=== PATIENT | male | born 1930 | race Caucasian/White ===

== ENCOUNTER → 2018-11-15 | Outpatient (CLI) | payer OTHER | END | disposition home or self-care (01) | LOC: SHCH 07:50 | PROVIDERS: ATTEND Internal Medicine Cardiovascular Disease | DX: R60.9 Edema, unspecified (principal) | CPT/HCPCS: 93970 ==

== ENCOUNTER 2020-06-23 05:36 | Day surgery (SDC) | payer OTHER ==
[2020-06-19 15:40] LABS: BASOPHILS % (AUTO) 0.9 % (0.0-5.0); EOSINOPHILS % (AUTO) 3.1 % (0.0-8.0); HEMATOCRIT 46.9 % (42-54); LYMPHOCYTES % (AUTO) 21.9 % (21.0-51.0); MEAN CORPUSCULAR HGB CONC 32.6 g/dL (32.0-36.0); MONOCYTES % (AUTO) 11.1 % (3.0-13.0); NEUTROPHILS % (AUTO) 62.3 % (40.0-77.0); PLATELET COUNT (AUTO) 178 K/uL (130-400); RED CELL DISTRIBUTION WIDTH 15.3 % (11.0-15.5); WHITE BLOOD COUNT (AUTO) 7.4 K/uL (4.8-10.8)
[2020-06-19 15:51] LABS: CREATININE 1.1 mg/dL (0.5-1.5)
[2020-06-19 15:54] LABS: INR 1.04 (0.85-1.15); PROTHROMBIN TIME 11.3 SEC (9.6-11.6)
[2020-06-19 15:55] LABS: PARTIAL THROMBOPLASTIN TIME 25.9 SEC (26.3-35.5)
[2020-06-19 16:15] LABS: APPEARANCE,URINE Clear (CLEAR); BILIRUBIN,URINE Negative (NEGATIVE); COLOR,URINE Yellow (YELLOW); GLUCOSE, URINE (UA) >=1000 mg/dL (NEGATIVE); KETONES,URINE Negative (NEGATIVE); LEUKOCYTE ESTERASE ,URINE Negative (NEGATIVE); NITRATE,URINE Negative (NEGATIVE); OCCULT BLOOD,URINE Negative (NEGATIVE); PROTEIN,URINE Negative (NEGATIVE); UROBILINOGEN,URINE 0.2 mg/dL (0.2-1.0)
[2020-06-19 16:28] LABS: BACTERIA,URINE Rare /HPF (None Seen); RBC,URINE None Seen /HPF (0-1); WBC,URINE None Seen /HPF (0-1)
[2020-06-19 16:29] LABS: SQUAMOUS EPITHELIAL CELL,UR None Seen /HPF (0-2)
[2020-06-22 10:16] VITALS: BP 163/81
[2020-06-23] VITALS (11 sets, daily range): BP systolic 111–151; BP diastolic 62–80
[~2020-06-23] VITALS: Ht 177.8 cm; Wt 92.7 kg
[~2020-06-23 05:36] MED LIST: APIX5TAB PO; CARB-37 PO; CARV6.25 PO; DOFE250C PO; EMPA10TA PO; FURO40TA5 PO; GABA400C PO; INSU100V12 SQ; LEVO55OS OD; PRIM50TA23 PO; ROPI1TAB13 PO; ROSU20TA31 PO; XALA2.5OS OD
[2020-06-23] MEDS ORDERED: IODIXANOL 320 MG/ML 100 ML VIAL ONE ×2 (07:19→08:22)
[2020-06-23] MEDS ORDERED: LIDOCAINE HCL 2% 20ML ONE (07:19)
[2020-06-23] MEDS ORDERED: NITROGLYCERIN 2 MG/VIAL VIAL IV ONE (07:19)
[2020-06-23] MEDS ORDERED: SODIUM BICARB 50MEQ 50ML VIAL 0 ML ONE (07:19)
[2020-06-23] MEDS ORDERED: HEPARIN SODIUM 1000UNIT/ML 10ML VIAL ONE (07:19)
[2020-06-23] MEDS ORDERED: FENTANYL CITRATE PF 50 MCG/1 ML 2ML VIAL ONE (07:53)
[2020-06-23] MEDS ORDERED: MIDAZOLAM HCL 1 MG/ML 2ML VIAL ONE (07:53)
[2020-06-23] MEDS ORDERED: SODIUM CHLORIDE 0.9% 1000ML 1,000 ML IV SCH (08:00)
[2020-06-23] MEDS ORDERED: PRIM50TA23 PO (12:07)
[2020-06-23] MEDS ORDERED: ROSU20TA31 PO (12:07)
[2020-06-23] MEDS ORDERED: DOFE250C PO (12:07)
[2020-06-23] MEDS ORDERED: EMPA10TA PO (12:07)
[2020-06-23] MEDS ORDERED: GABA400C PO (12:07)
[2020-06-23] MEDS ORDERED: XALA2.5OS OD (12:07)
[2020-06-23] MEDS ORDERED: INSU100V12 SQ (12:07)
[2020-06-23] MEDS ORDERED: CARV6.25 PO (12:07)
[2020-06-23] MEDS ORDERED: CARB-37 PO (12:07)
[2020-06-23] MEDS ORDERED: FURO40TA5 PO (12:07)
[2020-06-23] MEDS ORDERED: LEVO55OS OD (12:07)
[2020-06-23] MEDS ORDERED: ROPI1TAB13 PO (12:07)
[2020-06-23] MEDS ORDERED: APIX5TAB PO (12:07)
== END 2020-06-23 13:15 | disposition home or self-care (01) ==
LOC: DAH 05:36
PROVIDERS: ATTEND Internal Medicine Cardiovascular Disease
DX: I70.212 Atherosclerosis of native arteries of extremities with intermittent claudication, left leg (principal); E11.51 Type 2 diabetes mellitus with diabetic peripheral angiopathy without gangrene; I70.92 Chronic total occlusion of artery of the extremities; I25.10 Atherosclerotic heart disease of native coronary artery without angina pectoris; I10 Essential (primary) hypertension; E78.5 Hyperlipidemia, unspecified; G20 Parkinson's disease; I48.0 Paroxysmal atrial fibrillation; I25.2 Old myocardial infarction; Z79.01 Long term (current) use of anticoagulants; Z95.1 Presence of aortocoronary bypass graft; Z79.899 Other long term (current) drug therapy; Z79.4 Long term (current) use of insulin; Z79.82 Long term (current) use of aspirin; Z83.3 Family history of diabetes mellitus
CPT/HCPCS: 36246; 36415; 71045; 75716; 80048; 81001; 82948 ×2; 85025; 85610; 85730; 93005; A4215; A4216; A4221; A4222; A4223 ×2; A4606; A4663; C1760; C1769; C1894 ×2; J1644; J2250; J3010; J3490 ×2; J7030; Q9967 ×2; 99156; 99157

== ENCOUNTER → 2020-07-21 | Outpatient (CLI) | payer OTHER | END | disposition home or self-care (01) | LOC: SHCH 08:32 | PROVIDERS: ATTEND Internal Medicine Cardiovascular Disease | DX: I11.0 Hypertensive heart disease with heart failure (principal); I50.22 Chronic systolic (congestive) heart failure; I08.8 Other rheumatic multiple valve diseases; E78.5 Hyperlipidemia, unspecified; E11.9 Type 2 diabetes mellitus without complications | CPT/HCPCS: 93306; 93356 ==

== ENCOUNTER 2020-07-25 15:36 | Inpatient (IN) | payer OTHER ==
[~2020-07-25] VITALS: Ht 177.8 cm; Wt 91.2 kg
[2020-07-25 16:14] LABS: BASOPHILS % (AUTO) 0.7 % (0.0-5.0); EOSINOPHILS % (AUTO) 2.4 % (0.0-8.0); HEMATOCRIT 51.9 % (42-54); LYMPHOCYTES % (AUTO) 17.9 % (21.0-51.0); MEAN CORPUSCULAR HEMOGLOBIN 29.2 pg (27.0-33.0); MEAN CORPUSCULAR HGB CONC 32.2 g/dL (32.0-36.0); MEAN CORPUSCULAR VOLUME 90.7 fL (79-99); MONOCYTES % (AUTO) 13.7 % (3.0-13.0); NEUTROPHILS % (AUTO) 64.9 % (40.0-77.0); PLATELET COUNT (AUTO) 147 K/uL (130-400); RED BLOOD CELL COUNT(AUTO) 5.72 MIL/uL (4.50-6.20); WHITE BLOOD COUNT (AUTO) 6.7 K/uL (4.8-10.8)
[2020-07-25] MEDS ORDERED: ZOSYN 3.375GM+NS 50ML 50 ML IV ONE (16:28)
[2020-07-25] MEDS ORDERED: VANCOMYCIN 1GM+NS 250ML 250 ML IV ONE (16:28)
[2020-07-25 16:29] LABS: CREATININE 1.1 mg/dL (0.5-1.5); POTASSIUM 4.5 mmol/L (3.5-5.1)
[2020-07-25] MEDS ORDERED: SODIUM CHLORIDE 0.9% 100 ML IV ONE (16:29)
[2020-07-25 16:35] LABS: ALBUMIN 3.8 g/dL (3.5-5.0); BILIRUBIN,TOTAL 0.6 mg/dL (0.2-1.0); TOTAL PROTEIN, SERUM 7.7 g/dL (6.0-8.3)
[2020-07-25 17:03] LABS: INR 1.03 (0.85-1.15); PROTHROMBIN TIME 11.2 SEC (9.6-11.6)
[2020-07-25 17:05] LABS: PARTIAL THROMBOPLASTIN TIME 27.4 SEC (26.3-35.5)
[2020-07-25 17:29] LABS: APPEARANCE,URINE Clear (CLEAR); BILIRUBIN,URINE Negative (NEGATIVE); COLOR,URINE Yellow (YELLOW); GLUCOSE, URINE (UA) >=1000 mg/dL (NEGATIVE); KETONES,URINE Negative (NEGATIVE); LEUKOCYTE ESTERASE ,URINE Negative (NEGATIVE); NITRATE,URINE Negative (NEGATIVE); OCCULT BLOOD,URINE Negative (NEGATIVE); PROTEIN,URINE Negative (NEGATIVE); UROBILINOGEN,URINE 0.2 mg/dL (0.2-1.0)
[2020-07-25 18:07] LABS: BACTERIA,URINE None Seen /HPF (None Seen); RBC,URINE None Seen /HPF (0-1); SQUAMOUS EPITHELIAL CELL,UR Rare /HPF (0-2)
[2020-07-25 18:08] LABS: WBC,URINE 0-1 /HPF (0-1)
[2020-07-25] MEDS ORDERED: GLUCAGON 1MG KIT 1 MG ML IM PRN (18:30)
[2020-07-25] MEDS ORDERED: DEXTROSE 50%-WATER 50 ML DISP.SYRIN IV PRN (18:30)
[2020-07-25 18:59] LABS: HEMOGLOBIN A1C 9.2 % (4.0-6.0)
[2020-07-25] MEDS ORDERED: ACETAMINOPHEN 325 MG TAB PO PRN ×2 (19:30)
[2020-07-25] MEDS ORDERED: VANCOMYCIN PROTOCOL PER PHARMACY IV PRN (19:30)
[2020-07-25] MEDS ORDERED: ONDANSETRON HCL 4 MG/2 ML VIAL IV PRN (19:30)
[2020-07-25] MEDS ORDERED: NITROGLYCERIN 0.4 MG SL TAB SL PRN (19:30)
[2020-07-25] MEDS ORDERED: ACETAMINOPHEN-CODEINE 300/30MG TAB PO PRN ×2 (19:30)
[2020-07-25] MEDS ORDERED: SODIUM CHLORIDE 0.9% 1000ML 1,000 ML IV SCH (19:30)
[2020-07-25] MEDS: SODIUM CHLORIDE 0.9% 1000ML 1,000 ML IV SCH (19:30)
[2020-07-25] MEDS ORDERED: FAMOTIDINE 20MG TAB 20 MG TAB ONE (20:31)
[2020-07-25] MEDS ORDERED: INSULIN HUMULIN R 100 UNIT/ML 3ML SQ SCH (21:00)
[2020-07-25] MEDS: FAMOTIDINE 20MG TAB 20 MG TAB PO SCH (21:00)
[2020-07-25] MEDS ORDERED: DILTIAZEM HCL 5 MG/ML 10 ML VIAL IV ONE (22:35)
[2020-07-25] MEDS ORDERED: VANCOMYCIN 1GM+NS 250ML 250 ML IV SCH (23:00)
[2020-07-26] MEDS ORDERED: ZOSYN 3.375GM+NS 50ML 50 ML IV SCH
[2020-07-26] MEDS ORDERED: DILTIAZEM HCL 125 MG/25 ML VIAL IV ONE (01:19)
[2020-07-26] MEDS ORDERED: SODIUM CHLORIDE 0.9% 100 ML IV ONE ×3 (01:20→07:47)
[2020-07-26] MEDS ORDERED: DILTIAZEM HCL 125 MG/25 ML 125 MG in SODIUM CHLORIDE 0.9% 100 ML IV SCH (01:30)
[2020-07-26] MEDS ORDERED: ZOSYN 3.375GM+NS 50ML 50 ML IV ONE ×2 (03:45→07:46)
[2020-07-26 04:16] LABS: BASOPHILS % (AUTO) 0.9 % (0.0-5.0); EOSINOPHILS % (AUTO) 2.5 % (0.0-8.0); HEMATOCRIT 49.3 % (42-54); LYMPHOCYTES % (AUTO) 18.3 % (21.0-51.0); MEAN CORPUSCULAR HEMOGLOBIN 29.2 pg (27.0-33.0); MEAN CORPUSCULAR HGB CONC 31.8 g/dL (32.0-36.0); MEAN CORPUSCULAR VOLUME 91.6 fL (79-99); MONOCYTES % (AUTO) 13.9 % (3.0-13.0); NEUTROPHILS % (AUTO) 64.1 % (40.0-77.0); PLATELET COUNT (AUTO) 142 K/uL (130-400); RED BLOOD CELL COUNT(AUTO) 5.38 MIL/uL (4.50-6.20); RED CELL DISTRIBUTION WIDTH 15.2 % (11.0-15.5); WHITE BLOOD COUNT (AUTO) 6.8 K/uL (4.8-10.8)
[2020-07-26 04:30] LABS: ALBUMIN 3.3 g/dL (3.5-5.0); BILIRUBIN,TOTAL 0.7 mg/dL (0.2-1.0); CREATININE 0.9 mg/dL (0.5-1.5); POTASSIUM 3.9 mmol/L (3.5-5.1); TOTAL PROTEIN, SERUM 6.5 g/dL (6.0-8.3)
[2020-07-26] MEDS ORDERED: FAMOTIDINE 20MG TAB 20 MG TAB ONE (07:46)
[2020-07-26] MEDS ORDERED: ENOXAPARIN SODIUM 30 MG/0.3 ML SQ ONE (07:46)
[2020-07-26] MEDS ORDERED: SODIUM CHLORIDE 0.9% 1000ML 1,000 ML IV ONE (07:46)
[2020-07-26] MEDS: FAMOTIDINE 20MG TAB 20 MG TAB PO SCH ×2 (09:00→21:00)
[2020-07-26] MEDS ORDERED: ENOXAPARIN SODIUM 30 MG/0.3 ML SQ SCH (09:00)
[2020-07-26] MEDS: SODIUM CHLORIDE 0.9% 1000ML 1,000 ML IV SCH ×2 (09:13→23:31)
[2020-07-26] MEDS ORDERED: APIXABAN 2.5 MG TABLET PO ONE (20:48)
[2020-07-26] MEDS ORDERED: FUROSEMIDE 40 MG TABLET ONE (20:49)
[2020-07-26] MEDS ORDERED: GABAPENTIN 300 MG CAPSULE ONE (20:50)
[2020-07-26] MEDS ORDERED: GABAPENTIN 100 MG CAPSULE ONE (20:50)
[2020-07-26] MEDS ORDERED: CARVEDILOL 6.25 MG TABLET PO ONE (20:50)
[2020-07-26] MEDS: LEVODOPA PO SCH (21:00)
[2020-07-26] MEDS: DOFETILIDE 250 MCG PO SCH (21:00)
[2020-07-26] MEDS ORDERED: ENOXAPARIN SODIUM 100 MG/1 ML SQ SCH (21:00)
[2020-07-26] MEDS: [UNRECOGNIZED DRUG - OTHER] PO SCH (21:00)
[2020-07-26] MEDS: ATORVASTATIN CALCIUM 40 MG TABLET PO SCH (21:00)
[2020-07-26] MEDS: ROPINIROLE HCL 1 MG TABLET PO SCH (21:00)
[2020-07-26] MEDS: CARBIDOPA PO SCH (21:00)
[2020-07-26] MEDS: GABAPENTIN 100 MG CAPSULE PO SCH (21:00)
[2020-07-26] MEDS: INSULIN HUMULIN R 100 UNIT/ML 3ML SQ SCH (21:00)
[2020-07-26] MEDS: PRIMIDONE 50 MG TAB PO SCH (21:00)
[2020-07-26] MEDS: INSULIN GLARGINE 100 UNITS/ML 10 ML VIAL SQ SCH (21:00)
[2020-07-26] MEDS ORDERED: CARVEDILOL 6.25 MG TABLET PO SCH (21:00)
[2020-07-27] MEDS: INSULIN HUMULIN R 100 UNIT/ML 3ML SQ SCH ×7 (07:30→21:16)
[2020-07-27 07:42] LABS: BASOPHILS % (AUTO) 0.5 % (0.0-5.0); EOSINOPHILS % (AUTO) 1.4 % (0.0-8.0); HEMATOCRIT 48.5 % (42-54); LYMPHOCYTES % (AUTO) 17.8 % (21.0-51.0); MEAN CORPUSCULAR HEMOGLOBIN 28.9 pg (27.0-33.0); MEAN CORPUSCULAR HGB CONC 31.3 g/dL (32.0-36.0); MEAN CORPUSCULAR VOLUME 92.2 fL (79-99); MONOCYTES % (AUTO) 13.6 % (3.0-13.0); NEUTROPHILS % (AUTO) 66.2 % (40.0-77.0); PLATELET COUNT (AUTO) 152 K/uL (130-400); RED BLOOD CELL COUNT(AUTO) 5.26 MIL/uL (4.50-6.20); WHITE BLOOD COUNT (AUTO) 7.8 K/uL (4.8-10.8)
[2020-07-27 08:05] LABS: ALBUMIN 3.1 g/dL (3.5-5.0); ASPARTATE AMINOTRANSFERASE 14 U/L (10-37); BILIRUBIN,TOTAL 0.7 mg/dL (0.2-1.0); CARBON DIOXIDE 27 mmol/L (21-32); CHLORIDE 107 mmol/L (101-111); CREATININE 0.8 mg/dL (0.5-1.5); GLOMERULAR FILTR. RATE CALC 97 mL/min (>60); GLUCOSE,RANDOM 117 mg/dL (70-105); POTASSIUM 3.4 mmol/L (3.5-5.1); SODIUM SERUM 143 mmol/L (136-145); TOTAL PROTEIN, SERUM 6.6 g/dL (6.0-8.3); UREA NITROGEN, BLOOD 17 mg/dL (7-18)
[2020-07-27 08:06] LABS: ALANINE AMINOTRANSFERASE < 6 U/L (12-78)
[2020-07-27] MEDS ORDERED: LATANOPROST 2.5 ML DROPS OD SCH (09:00)
[2020-07-27] MEDS: FUROSEMIDE 40 MG TABLET PO SCH (09:00)
[2020-07-27] MEDS: ROPINIROLE HCL 1 MG TABLET PO SCH ×2 (09:00→21:06)
[2020-07-27] MEDS: PRIMIDONE 50 MG TAB PO SCH ×2 (09:00→21:07)
[2020-07-27] MEDS: [UNRECOGNIZED DRUG - OTHER] PO SCH ×3 (09:00→21:00)
[2020-07-27] MEDS: LEVODOPA PO SCH ×3 (09:00→21:00)
[2020-07-27] MEDS: DOFETILIDE 250 MCG PO SCH ×2 (09:00→21:00)
[2020-07-27] MEDS: CARBIDOPA PO SCH ×3 (09:00→21:00)
[2020-07-27] MEDS: LEVOBUNOLOL HCL OD SCH (09:00)
[2020-07-27] MEDS: FAMOTIDINE 20MG TAB 20 MG TAB PO SCH ×2 (09:00→21:06)
[2020-07-27 09:12] LABS: ERYTHROCYTE SEDIMENTATION RATE 15 MM/HR (0-20)
[2020-07-27] MEDS: CARVEDILOL 12.5 MG TABLET PO SCH ×2 (09:16→21:07)
[2020-07-27] MEDS: DOXYCYCLINE 100MG+NS 250ML 250 ML IV SCH ×2 (11:56→23:45)
[2020-07-27 12:28] VITALS: BP 121/66
[2020-07-27] MEDS ORDERED: CLON1PAT4 TD (16:40)
[2020-07-27 17:34] VITALS: BP 147/74
[2020-07-27 20:00] VITALS: BP 152/79
[2020-07-27] MEDS ORDERED: APIXABAN 5 MG TABLET PO SCH (21:00)
[2020-07-27] MEDS: CEFTRIAXONE SODIUM 1 GM IVP SCH (21:08)
[2020-07-27] MEDS: APIXABAN 5 MG TABLET PO SCH (21:08)
[2020-07-27] MEDS: CILOSTAZOL 100 MG TAB PO SCH (21:08)
[2020-07-27] MEDS: ATORVASTATIN CALCIUM 40 MG TABLET PO SCH (21:08)
[2020-07-27] MEDS: GABAPENTIN 100 MG CAPSULE PO SCH (21:09)
[2020-07-27] MEDS: INSULIN GLARGINE 100 UNITS/ML 10 ML VIAL SQ SCH (21:17)
[2020-07-28] VITALS (7 sets, daily range): BP systolic 121–149; BP diastolic 62–76
[2020-07-28 04:22] LABS: BASOPHILS % (AUTO) 0.7 % (0.0-5.0); EOSINOPHILS % (AUTO) 1.9 % (0.0-8.0); HEMATOCRIT 45.4 % (42-54); MEAN CORPUSCULAR HEMOGLOBIN 29.8 pg (27.0-33.0); MEAN CORPUSCULAR HGB CONC 32.6 g/dL (32.0-36.0); MEAN CORPUSCULAR VOLUME 91.5 fL (79-99); MONOCYTES % (AUTO) 12.1 % (3.0-13.0); NEUTROPHILS % (AUTO) 63.7 % (40.0-77.0); PLATELET COUNT (AUTO) 146 K/uL (130-400); RED BLOOD CELL COUNT(AUTO) 4.96 MIL/uL (4.50-6.20); RED CELL DISTRIBUTION WIDTH 15.1 % (11.0-15.5); WHITE BLOOD COUNT (AUTO) 8.5 K/uL (4.8-10.8)
[2020-07-28 04:48] LABS: ALBUMIN 2.8 g/dL (3.5-5.0); BILIRUBIN,TOTAL 0.6 mg/dL (0.2-1.0); POTASSIUM 3.9 mmol/L (3.5-5.1); TOTAL PROTEIN, SERUM 6.2 g/dL (6.0-8.3)
[2020-07-28] MEDS: INSULIN HUMULIN R 100 UNIT/ML 3ML SQ SCH ×7 (05:38→21:53)
[2020-07-28] MEDS: CARVEDILOL 12.5 MG TABLET PO SCH ×2 (09:12→21:18)
[2020-07-28] MEDS: APIXABAN 5 MG TABLET PO SCH ×2 (09:13→21:17)
[2020-07-28] MEDS: FUROSEMIDE 40 MG TABLET PO SCH (09:13)
[2020-07-28] MEDS: ROPINIROLE HCL 1 MG TABLET PO SCH ×2 (09:13→21:18)
[2020-07-28] MEDS: FAMOTIDINE 20MG TAB 20 MG TAB PO SCH ×2 (09:13→21:17)
[2020-07-28] MEDS: CEFTRIAXONE SODIUM 1 GM IVP SCH ×2 (09:14→21:16)
[2020-07-28] MEDS: PRIMIDONE 50 MG TAB PO SCH ×2 (09:14→21:17)
[2020-07-28] MEDS: CILOSTAZOL 100 MG TAB PO SCH ×2 (09:14→21:18)
[2020-07-28] MEDS: CARBIDOPA PO SCH ×3 (09:35→21:26)
[2020-07-28] MEDS: LEVODOPA PO SCH ×3 (09:35→21:26)
[2020-07-28] MEDS: DOFETILIDE 250 MCG PO SCH ×2 (09:35→21:26)
[2020-07-28] MEDS: [UNRECOGNIZED DRUG - OTHER] PO SCH ×3 (09:35→21:26)
[2020-07-28] MEDS: LEVOBUNOLOL HCL OD SCH (09:35)
[2020-07-28] MEDS: **HM**JARDIANCE 10MG PO SCH (09:36)
[2020-07-28] MEDS: DOXYCYCLINE 100MG+NS 250ML 250 ML IV SCH ×2 (12:08→23:54)
[2020-07-28] MEDS ORDERED: LATANOPROST 2.5 ML DROPS OD SCH (21:00)
[2020-07-28] MEDS: GABAPENTIN 100 MG CAPSULE PO SCH (21:16)
[2020-07-28] MEDS: ATORVASTATIN CALCIUM 40 MG TABLET PO SCH (21:17)
[2020-07-28] MEDS: INSULIN GLARGINE 100 UNITS/ML 10 ML VIAL SQ SCH (21:54)
[2020-07-28] MEDS ORDERED: SODIUM CHLORIDE 0.9% 250 ML IV ONE (23:52)
[2020-07-29 04:00] VITALS: BP 109/69
[2020-07-29 04:34] LABS: BASOPHILS % (AUTO) 0.6 % (0.0-5.0); EOSINOPHILS % (AUTO) 2.3 % (0.0-8.0); HEMATOCRIT 44.4 % (42-54); LYMPHOCYTES % (AUTO) 19.9 % (21.0-51.0); MEAN CORPUSCULAR HEMOGLOBIN 29.1 pg (27.0-33.0); MEAN CORPUSCULAR HGB CONC 32.2 g/dL (32.0-36.0); MEAN CORPUSCULAR VOLUME 90.2 fL (79-99); MONOCYTES % (AUTO) 11.2 % (3.0-13.0); NEUTROPHILS % (AUTO) 65.4 % (40.0-77.0); PLATELET COUNT (AUTO) 157 K/uL (130-400); RED BLOOD CELL COUNT(AUTO) 4.92 MIL/uL (4.50-6.20); RED CELL DISTRIBUTION WIDTH 14.8 % (11.0-15.5); WHITE BLOOD COUNT (AUTO) 7.9 K/uL (4.8-10.8)
[2020-07-29 04:46] LABS: ALBUMIN 2.6 g/dL (3.5-5.0); BILIRUBIN,TOTAL 0.5 mg/dL (0.2-1.0); CREATININE 0.9 mg/dL (0.5-1.5); POTASSIUM 3.9 mmol/L (3.5-5.1); TOTAL PROTEIN, SERUM 6.2 g/dL (6.0-8.3)
[2020-07-29] MEDS: INSULIN HUMULIN R 100 UNIT/ML 3ML SQ SCH ×4 (06:00→12:36)
[2020-07-29 08:00] VITALS: BP 140/72
[2020-07-29] MEDS: CEFTRIAXONE SODIUM 1 GM IVP SCH (09:04)
[2020-07-29] MEDS: CILOSTAZOL 100 MG TAB PO SCH (09:04)
[2020-07-29] MEDS: FAMOTIDINE 20MG TAB 20 MG TAB PO SCH (09:05)
[2020-07-29] MEDS: APIXABAN 5 MG TABLET PO SCH (09:05)
[2020-07-29] MEDS: PRIMIDONE 50 MG TAB PO SCH (09:05)
[2020-07-29] MEDS: ROPINIROLE HCL 1 MG TABLET PO SCH (09:05)
[2020-07-29] MEDS: FUROSEMIDE 40 MG TABLET PO SCH (09:05)
[2020-07-29] MEDS: CARVEDILOL 12.5 MG TABLET PO SCH (09:06)
[2020-07-29] MEDS: LEVOBUNOLOL HCL OD SCH (09:07)
[2020-07-29] MEDS: CARBIDOPA PO SCH (09:17)
[2020-07-29] MEDS: DOFETILIDE 250 MCG PO SCH (09:17)
[2020-07-29] MEDS: [UNRECOGNIZED DRUG - OTHER] PO SCH (09:17)
[2020-07-29] MEDS: LEVODOPA PO SCH (09:17)
[2020-07-29] MEDS: **HM**JARDIANCE 10MG PO SCH (09:17)
[2020-07-29] MEDS ORDERED: CEPH500B PO (10:54)
[2020-07-29] MEDS ORDERED: CARV12.580 PO (10:54)
[2020-07-29] MEDS ORDERED: DOXY100C2 PO (10:54)
[2020-07-29] MEDS ORDERED: CILO100T PO (10:54)
[2020-07-29 12:00] VITALS: BP 117/74
[2020-07-29] MEDS: DOXYCYCLINE 100MG+NS 250ML 250 ML IV SCH (12:36)
[2020-07-29] MEDS ORDERED: SODIUM CHLORIDE 0.9% 250 ML IV ONE (12:40)
== END 2020-07-29 16:05 | disposition home or self-care (01) | DRG 602 ==
LOC: EDH 15:36 → EDHIP 18:20 → 2CH 07-26 09:15 → EDHIP 07-26 09:15 → 4CH 07-27 08:50
PROVIDERS: ADMIT Internal Medicine; ATTEND Internal Medicine
DX: L03.115 Cellulitis of right lower limb (principal); I50.23 Acute on chronic systolic (congestive) heart failure; I48.0 Paroxysmal atrial fibrillation; E11.40 Type 2 diabetes mellitus with diabetic neuropathy, unspecified; E11.51 Type 2 diabetes mellitus with diabetic peripheral angiopathy without gangrene; I25.5 Ischemic cardiomyopathy; I87.2 Venous insufficiency (chronic) (peripheral); Z79.01 Long term (current) use of anticoagulants; Z20.822 Contact with and (suspected) exposure to COVID-19; E66.9 Obesity, unspecified; E78.5 Hyperlipidemia, unspecified; G20 Parkinson's disease; I11.0 Hypertensive heart disease with heart failure; M47.815 Spondylosis without myelopathy or radiculopathy, thoracolumbar region; R53.81 Other malaise; I25.10 Atherosclerotic heart disease of native coronary artery without angina pectoris; I25.2 Old myocardial infarction; Z79.4 Long term (current) use of insulin; Z83.3 Family history of diabetes mellitus; Z95.0 Presence of cardiac pacemaker; Z95.1 Presence of aortocoronary bypass graft; Z79.899 Other long term (current) drug therapy; Z68.28 Body mass index [BMI] 28.0-28.9, adult
CPT/HCPCS: 36415; 71045; 80053; 80202; 81001; 82550; 82948; 83036; 83605; 83735; 83880; 84145; 84484; 85025; 85610; 85651; 85730; 86140; 87040; 87426; 87635; 87641; 93005; 93971; 97039; C9803; G0378; J0696; J1650; J1815; J2543; J3370; J3490; J7030; J7050

== ENCOUNTER 2020-12-23 16:06 | Inpatient (IN) | payer OTHER ==
[~2020-12-23] VITALS: Ht 208.3 cm; Wt 94.2 kg
[~2020-12-23 16:06] MED LIST changes: +CARV12.580 PO; -CARV6.25 PO; +CEPH500B PO; +CILO100T PO; +CLON1PAT4 TD; +DOXY100C5 PO
[2020-12-23 16:55] LABS: BASOPHILS % (AUTO) 0.7 % (0.0-5.0); EOSINOPHILS % (AUTO) 2.3 % (0.0-8.0); HEMATOCRIT 49.2 % (42-54); LYMPHOCYTES % (AUTO) 18.4 % (21.0-51.0); MEAN CORPUSCULAR HEMOGLOBIN 28.6 pg (27.0-33.0); MEAN CORPUSCULAR HGB CONC 31.9 g/dL (32.0-36.0); MEAN CORPUSCULAR VOLUME 89.8 fL (79-99); MONOCYTES % (AUTO) 10.1 % (3.0-13.0); NEUTROPHILS % (AUTO) 67.8 % (40.0-77.0); PLATELET COUNT (AUTO) 163 K/uL (130-400); RED BLOOD CELL COUNT(AUTO) 5.48 MIL/uL (4.50-6.20); RED CELL DISTRIBUTION WIDTH 16.2 % (11.0-15.5); WHITE BLOOD COUNT (AUTO) 8.4 K/uL (4.8-10.8)
[2020-12-23 17:07] LABS: CREATININE 1.4 mg/dL (0.5-1.5); POTASSIUM 4.3 mmol/L (3.5-5.1)
[2020-12-23 17:10] LABS: ALBUMIN 3.7 g/dL (3.5-5.0); BILIRUBIN,TOTAL 0.6 mg/dL (0.2-1.0); TOTAL PROTEIN, SERUM 7.2 g/dL (6.0-8.3)
[2020-12-23 17:51] LABS: APPEARANCE,URINE Clear (CLEAR); BILIRUBIN,URINE Negative (NEGATIVE); COLOR,URINE Yellow (YELLOW); GLUCOSE, URINE (UA) >=1000 mg/dL (NEGATIVE); KETONES,URINE Trace mg/dL (NEGATIVE); LEUKOCYTE ESTERASE ,URINE Negative (NEGATIVE); NITRATE,URINE Negative (NEGATIVE); OCCULT BLOOD,URINE Negative (NEGATIVE); PROTEIN,URINE Trace mg/dL (NEGATIVE); UROBILINOGEN,URINE 0.2 mg/dL (0.2-1.0)
[2020-12-23 18:01] LABS: BACTERIA,URINE Rare /HPF (None Seen); MUCUS,URINE Few LPF (None Seen); RBC,URINE 0-1 /HPF (0-1); SQUAMOUS EPITHELIAL CELL,UR Few /HPF (0-2); WBC,URINE 0-1 /HPF (0-1)
[2020-12-23] MEDS ORDERED: ZOSYN 3.375GM +NS 50ML IV SCH (18:30)
[2020-12-23] MEDS ORDERED: EMPA10TA PO (20:19)
[2020-12-23] MEDS ORDERED: LEVO55OS OU (20:19)
[2020-12-23] MEDS ORDERED: CARB-37 PO (20:19)
[2020-12-23] MEDS ORDERED: CARV6.25 PO (20:19)
[2020-12-23] MEDS ORDERED: APIX5TAB PO (20:19)
[2020-12-23] MEDS ORDERED: FOSI10TA70 PO (20:19)
[2020-12-23] MEDS ORDERED: XALA2.5OS OU (20:19)
[2020-12-23] MEDS ORDERED: DOFE250C PO (20:19)
[2020-12-23] MEDS ORDERED: GABA400C PO (20:19)
[2020-12-23] MEDS ORDERED: FURO40TA5 PO (20:19)
[2020-12-23] MEDS ORDERED: AEC81 PO (20:19)
[2020-12-23] MEDS ORDERED: ROSU20TA23 PO (20:19)
[2020-12-23] MEDS ORDERED: DETEMIR SQ (20:19)
[2020-12-23] MEDS ORDERED: PRIMIDONE PO (20:19)
[2020-12-23] MEDS ORDERED: ROPI1TAB13 PO (20:19)
[2020-12-23] MEDS ORDERED: CLON1PAT4 TD (20:19)
[2020-12-23] MEDS ORDERED: ONDANSETRON 4MG INJ IV PRN (21:30)
[2020-12-23] MEDS ORDERED: ACETAMINOPHEN WITH CODEINE 1 TAB TAB PO PRN (21:30)
[2020-12-24 00:40] VITALS: BP 138/98
[2020-12-24 03:10] VITALS: BP 138/97
[2020-12-24 04:42] LABS: BASOPHILS % (AUTO) 0.8 % (0.0-5.0); EOSINOPHILS % (AUTO) 1.8 % (0.0-8.0); HEMATOCRIT 52.7 % (42-54); LYMPHOCYTES % (AUTO) 20.3 % (21.0-51.0); MEAN CORPUSCULAR HEMOGLOBIN 28.3 pg (27.0-33.0); MEAN CORPUSCULAR HGB CONC 30.9 g/dL (32.0-36.0); MEAN CORPUSCULAR VOLUME 91.5 fL (79-99); MONOCYTES % (AUTO) 11.5 % (3.0-13.0); NEUTROPHILS % (AUTO) 65.1 % (40.0-77.0); PLATELET COUNT (AUTO) 171 K/uL (130-400); RED BLOOD CELL COUNT(AUTO) 5.76 MIL/uL (4.50-6.20); RED CELL DISTRIBUTION WIDTH 17.5 % (11.0-15.5); WHITE BLOOD COUNT (AUTO) 8.9 K/uL (4.8-10.8)
[2020-12-24] MEDS: ZOSYN 3.375GM+NS 50ML 50 ML IV SCH ×2 (04:56→13:28)
[2020-12-24 05:03] LABS: CREATININE 1.3 mg/dL (0.5-1.5); MAGNESIUM 2.1 mg/dL (1.80-2.40); PHOSPHORUS 3.4 mg/dL (2.5-4.9); POTASSIUM 4.9 mmol/L (3.5-5.1)
[2020-12-24 05:14] LABS: PLATELET MORPHOLOGY LARGE PLTS PRESENT
[2020-12-24 05:38] LABS: HEMOGLOBIN A1C 9.4 % (4.0-6.0)
[2020-12-24] MEDS: INSULIN HUMULIN R 100 UNIT/ML 3ML SQ SCH ×4 (06:40→21:00)
[2020-12-24] MEDS: FAMOTIDINE 20MG TAB PO SCH (09:31)
[2020-12-24] MEDS: APIXABAN 5 MG TABLET PO SCH ×2 (09:32→22:09)
[2020-12-24 10:05] VITALS: BP 147/93
[2020-12-24] MEDS ORDERED: EMPA25TA PO (12:25)
[2020-12-24] MEDS ORDERED: GABA600T10 PO (12:25)
[2020-12-24] MEDS ORDERED: VIT1CAPS5 PO (12:29)
[2020-12-24] MEDS ORDERED: MULT-1289 PO (12:29)
[2020-12-24] MEDS ORDERED: GABAPENTIN 300 MG CAPSULE PO PRN (14:00)
[2020-12-24] MEDS: LEVODOPA PO SCH ×2 (14:00→22:09)
[2020-12-24] MEDS: [UNRECOGNIZED DRUG - OTHER] PO SCH ×2 (14:00→22:09)
[2020-12-24] MEDS: CARBIDOPA PO SCH ×2 (14:00→22:09)
[2020-12-24 14:07] VITALS: BP 149/76
[2020-12-24] MEDS ORDERED: VANCOMYCIN PROTOCOL PER PHARMACY IV SCH (14:30)
[2020-12-24] MEDS ORDERED: COMPOUND IV REFRIGERATED 1 EACH IVSOLN MISC PRN (16:00)
[2020-12-24 16:43] VITALS: BP 158/93
[2020-12-24] MEDS: CEFAZOLIN SODIUM 1 GM VIAL IVP SCH (18:25)
[2020-12-24] MEDS: VANCOMYCIN 1.25GM/NS 250ML IVPB SCH ×2 (18:28)
[2020-12-24] MEDS ORDERED: FUROSEMIDE 20MG VIAL IV ONE (19:00)
[2020-12-24 19:40] VITALS: BP 135/93
[2020-12-24] MEDS ORDERED: LATANOPROST OU SCH (21:00)
[2020-12-24] MEDS ORDERED: APIXABAN 5 MG TABLET PO SCH (21:00)
[2020-12-24] MEDS: LATANOPROST 2.5 ML DROPS OU SCH (22:07)
[2020-12-24] MEDS: CARVEDILOL 12.5 MG TABLET PO SCH (22:08)
[2020-12-24] MEDS: INSULIN GLARGINE 100 UNITS/ML 10 ML VIAL SQ SCH (22:09)
[2020-12-24] MEDS: ROPINIROLE HCL 0.25 MG TABLET PO SCH (22:10)
[2020-12-24] MEDS: ZINC PO SCH (22:10)
[2020-12-24] MEDS: VIT C PO SCH (22:10)
[2020-12-24] MEDS: VIT A PO SCH (22:10)
[2020-12-24] MEDS: VIT E PO SCH (22:10)
[2020-12-24] MEDS: PRIMIDONE 50 MG TAB PO SCH (22:10)
[2020-12-24] MEDS: COPPER PO SCH (22:10)
[2020-12-24] MEDS: DOFETILIDE 250 MCG PO SCH (22:10)
[2020-12-24] MEDS: ATORVASTATIN 40 MG TABLET PO SCH (22:10)
[2020-12-25] MEDS: CEFAZOLIN SODIUM 1 GM VIAL IVP SCH ×3 (00:44→17:00)
[2020-12-25 00:51] VITALS: BP 116/81
[2020-12-25 04:17] VITALS: BP 136/74
[2020-12-25] MEDS: INSULIN HUMULIN R 100 UNIT/ML 3ML SQ SCH ×4 (06:26→21:25)
[2020-12-25 07:40] VITALS: BP 137/91
[2020-12-25] MEDS: ZINC PO SCH ×2 (09:00→20:52)
[2020-12-25] MEDS: [UNRECOGNIZED DRUG - OTHER] PO SCH ×3 (09:00→20:51)
[2020-12-25] MEDS: VIT A PO SCH ×2 (09:00→20:52)
[2020-12-25] MEDS: LEVODOPA PO SCH ×3 (09:00→20:51)
[2020-12-25] MEDS: LEVOBUNOLOL HCL OU SCH (09:00)
[2020-12-25] MEDS: VIT C PO SCH ×2 (09:00→20:52)
[2020-12-25] MEDS: CARBIDOPA PO SCH ×3 (09:00→20:51)
[2020-12-25] MEDS: VIT E PO SCH ×2 (09:00→20:52)
[2020-12-25] MEDS: COPPER PO SCH ×2 (09:00→20:52)
[2020-12-25] MEDS: DOFETILIDE 250 MCG PO SCH ×2 (09:00→20:52)
[2020-12-25] MEDS: **HM**Empagliflozin (Jardiance) 12.5 MG PO SCH (09:00)
[2020-12-25] MEDS: VANCOMYCIN 1.25GM/NS 250ML IVPB SCH ×4 (09:46→21:05)
[2020-12-25] MEDS: MULTIVITAMIN WITH MINERALS TABLET PO SCH (09:47)
[2020-12-25] MEDS: APIXABAN 5 MG TABLET PO SCH ×2 (09:47→20:47)
[2020-12-25] MEDS: ROPINIROLE HCL 0.25 MG TABLET PO SCH ×2 (09:47→20:46)
[2020-12-25] MEDS: FUROSEMIDE 40 MG TABLET PO SCH (09:48)
[2020-12-25] MEDS: CARVEDILOL 12.5 MG TABLET PO SCH ×2 (09:48→20:47)
[2020-12-25] MEDS: FAMOTIDINE 20MG TAB PO SCH (09:48)
[2020-12-25] MEDS: PRIMIDONE 50 MG TAB PO SCH ×2 (09:48→20:47)
[2020-12-25] MEDS: ASPIRIN 81 MG EC TAB PO SCH (09:48)
[2020-12-25 11:35] VITALS: BP 118/67
[2020-12-25 15:35] VITALS: BP 159/96
[2020-12-25 20:19] VITALS: BP 153/95
[2020-12-25] MEDS: ATORVASTATIN 40 MG TABLET PO SCH (20:47)
[2020-12-25] MEDS: LATANOPROST 2.5 ML DROPS OU SCH (20:50)
[2020-12-25] MEDS: INSULIN GLARGINE 100 UNITS/ML 10 ML VIAL SQ SCH (21:26)
[2020-12-26] VITALS (7 sets, daily range): BP systolic 116–147; BP diastolic 77–93
[2020-12-26] MEDS: CEFAZOLIN SODIUM 1 GM VIAL IVP SCH ×3 (01:11→17:00)
[2020-12-26 04:41] LABS: BASOPHILS % (AUTO) 0.8 % (0.0-5.0); EOSINOPHILS % (AUTO) 3.2 % (0.0-8.0); HEMATOCRIT 45.2 % (42-54); LYMPHOCYTES % (AUTO) 21.2 % (21.0-51.0); MEAN CORPUSCULAR HEMOGLOBIN 28.1 pg (27.0-33.0); MEAN CORPUSCULAR HGB CONC 31.4 g/dL (32.0-36.0); MEAN CORPUSCULAR VOLUME 89.5 fL (79-99); MONOCYTES % (AUTO) 14.1 % (3.0-13.0); NEUTROPHILS % (AUTO) 60.2 % (40.0-77.0); PLATELET COUNT (AUTO) 147 K/uL (130-400); RED BLOOD CELL COUNT(AUTO) 5.05 MIL/uL (4.50-6.20); RED CELL DISTRIBUTION WIDTH 16.9 % (11.0-15.5); WHITE BLOOD COUNT (AUTO) 8.5 K/uL (4.8-10.8)
[2020-12-26 04:51] LABS: CREATININE 1.2 mg/dL (0.5-1.5); POTASSIUM 3.8 mmol/L (3.5-5.1)
[2020-12-26] MEDS: INSULIN HUMULIN R 100 UNIT/ML 3ML SQ SCH ×4 (06:07→21:16)
[2020-12-26] MEDS: DOFETILIDE 250 MCG PO SCH ×2 (09:00→21:12)
[2020-12-26] MEDS: **HM**Empagliflozin (Jardiance) 12.5 MG PO SCH (09:00)
[2020-12-26] MEDS: [UNRECOGNIZED DRUG - OTHER] PO SCH ×3 (09:00→21:12)
[2020-12-26] MEDS: VIT C PO SCH ×2 (09:00→21:08)
[2020-12-26] MEDS: VIT E PO SCH ×2 (09:00→21:08)
[2020-12-26] MEDS: LEVODOPA PO SCH ×3 (09:00→21:12)
[2020-12-26] MEDS: CARBIDOPA PO SCH ×3 (09:00→21:12)
[2020-12-26] MEDS: VIT A PO SCH ×2 (09:00→21:08)
[2020-12-26] MEDS: LEVOBUNOLOL HCL OU SCH (09:00)
[2020-12-26] MEDS: COPPER PO SCH ×2 (09:00→21:08)
[2020-12-26] MEDS: CARVEDILOL 12.5 MG TABLET PO SCH ×2 (09:00→21:06)
[2020-12-26] MEDS: ZINC PO SCH ×2 (09:00→21:08)
[2020-12-26] MEDS: MULTIVITAMIN WITH MINERALS TABLET PO SCH (09:21)
[2020-12-26] MEDS: VANCOMYCIN 1.25GM/NS 250ML IVPB SCH ×4 (09:21→21:04)
[2020-12-26] MEDS: FUROSEMIDE 40 MG TABLET PO SCH (09:24)
[2020-12-26] MEDS: ASPIRIN 81 MG EC TAB PO SCH (09:24)
[2020-12-26] MEDS: FAMOTIDINE 20MG TAB PO SCH (09:24)
[2020-12-26] MEDS: PRIMIDONE 50 MG TAB PO SCH ×2 (09:24→21:06)
[2020-12-26] MEDS: APIXABAN 5 MG TABLET PO SCH ×2 (09:25→21:07)
[2020-12-26] MEDS: ROPINIROLE HCL 0.25 MG TABLET PO SCH ×2 (09:25→21:06)
[2020-12-26] MEDS ORDERED: LACTULOSE 20 GM/30 ML UDCUP PO PRN (17:30)
[2020-12-26] MEDS: LATANOPROST 2.5 ML DROPS OU SCH (21:05)
[2020-12-26] MEDS: ATORVASTATIN 40 MG TABLET PO SCH (21:07)
[2020-12-26] MEDS: INSULIN GLARGINE 100 UNITS/ML 10 ML VIAL SQ SCH (21:14)
[2020-12-26] MEDS: HYDROCODONE/ACETAMINOPHEN 5/325 MG TAB PO PRN (22:54)
[2020-12-27] MEDS: CEFAZOLIN SODIUM 1 GM VIAL IVP SCH ×3 (01:01→16:48)
[2020-12-27 03:32] VITALS: BP 123/82
[2020-12-27 04:51] LABS: BASOPHILS % (AUTO) 0.9 % (0.0-5.0); EOSINOPHILS % (AUTO) 3.3 % (0.0-8.0); HEMATOCRIT 47.9 % (42-54); LYMPHOCYTES % (AUTO) 23.9 % (21.0-51.0); MEAN CORPUSCULAR HEMOGLOBIN 28.8 pg (27.0-33.0); MEAN CORPUSCULAR HGB CONC 30.7 g/dL (32.0-36.0); MEAN CORPUSCULAR VOLUME 93.7 fL (79-99); MONOCYTES % (AUTO) 12.5 % (3.0-13.0); NEUTROPHILS % (AUTO) 58.9 % (40.0-77.0); PLATELET COUNT (AUTO) 150 K/uL (130-400); RED BLOOD CELL COUNT(AUTO) 5.11 MIL/uL (4.50-6.20); RED CELL DISTRIBUTION WIDTH 17.1 % (11.0-15.5); WHITE BLOOD COUNT (AUTO) 7.9 K/uL (4.8-10.8)
[2020-12-27 05:20] LABS: CREATININE 1.2 mg/dL (0.5-1.5); POTASSIUM 5.1 mmol/L (3.5-5.1)
[2020-12-27] MEDS: INSULIN HUMULIN R 100 UNIT/ML 3ML SQ SCH ×4 (06:24→21:36)
[2020-12-27 07:30] VITALS: BP 133/80
[2020-12-27] MEDS: VIT A PO SCH ×2 (09:00→21:08)
[2020-12-27] MEDS: DOFETILIDE 250 MCG PO SCH ×2 (09:00→21:08)
[2020-12-27] MEDS: CARBIDOPA PO SCH ×3 (09:00→21:08)
[2020-12-27] MEDS: LEVODOPA PO SCH ×3 (09:00→21:08)
[2020-12-27] MEDS: VIT C PO SCH ×2 (09:00→21:08)
[2020-12-27] MEDS: **HM**Empagliflozin (Jardiance) 12.5 MG PO SCH (09:00)
[2020-12-27] MEDS: LEVOBUNOLOL HCL OU SCH (09:00)
[2020-12-27] MEDS: VIT E PO SCH ×2 (09:00→21:08)
[2020-12-27] MEDS: [UNRECOGNIZED DRUG - OTHER] PO SCH ×3 (09:00→21:08)
[2020-12-27] MEDS: COPPER PO SCH ×2 (09:00→21:08)
[2020-12-27] MEDS: ZINC PO SCH ×2 (09:00→21:08)
[2020-12-27] MEDS: ASPIRIN 81 MG EC TAB PO SCH (09:58)
[2020-12-27] MEDS: MULTIVITAMIN WITH MINERALS TABLET PO SCH (09:58)
[2020-12-27] MEDS: ROPINIROLE HCL 0.25 MG TABLET PO SCH ×2 (09:58→21:06)
[2020-12-27] MEDS: FUROSEMIDE 40 MG TABLET PO SCH (09:58)
[2020-12-27] MEDS: APIXABAN 5 MG TABLET PO SCH ×2 (09:58→21:06)
[2020-12-27] MEDS: CARVEDILOL 12.5 MG TABLET PO SCH ×2 (09:59→21:07)
[2020-12-27] MEDS: PRIMIDONE 50 MG TAB PO SCH ×2 (09:59→21:07)
[2020-12-27] MEDS: FAMOTIDINE 20MG TAB PO SCH (09:59)
[2020-12-27] MEDS: VANCOMYCIN 1.25GM/NS 250ML IVPB SCH ×2 (10:01)
[2020-12-27] MEDS: HYDROCODONE/ACETAMINOPHEN 5/325 MG TAB PO PRN (10:25)
[2020-12-27 11:25] VITALS: BP 120/67
[2020-12-27 15:20] VITALS: BP 114/58
[2020-12-27 20:39] VITALS: BP 141/87
[2020-12-27] MEDS ORDERED: 0.9% NACL 250ML 250 ML ONE (20:56)
[2020-12-27] MEDS: VANCOMYCIN 1G/250ML KIT 250 ML IV SCH (21:06)
[2020-12-27] MEDS: ATORVASTATIN 40 MG TABLET PO SCH (21:06)
[2020-12-27] MEDS: LATANOPROST 2.5 ML DROPS OU SCH (21:12)
[2020-12-27] MEDS: INSULIN GLARGINE 100 UNITS/ML 10 ML VIAL SQ SCH (21:36)
[2020-12-28] VITALS (7 sets, daily range): BP systolic 123–148; BP diastolic 67–92
[2020-12-28] MEDS: CEFAZOLIN SODIUM 1 GM VIAL IVP SCH ×2 (01:14→09:34)
[2020-12-28] MEDS: HYDROCODONE/ACETAMINOPHEN 5/325 MG TAB PO PRN (01:47)
[2020-12-28 04:26] LABS: BASOPHILS % (AUTO) 0.7 % (0.0-5.0); EOSINOPHILS % (AUTO) 3.1 % (0.0-8.0); HEMATOCRIT 46.9 % (42-54); LYMPHOCYTES % (AUTO) 21.7 % (21.0-51.0); MEAN CORPUSCULAR HEMOGLOBIN 28.4 pg (27.0-33.0); MEAN CORPUSCULAR HGB CONC 30.7 g/dL (32.0-36.0); MEAN CORPUSCULAR VOLUME 92.5 fL (79-99); MONOCYTES % (AUTO) 11.8 % (3.0-13.0); NEUTROPHILS % (AUTO) 62.6 % (40.0-77.0); PLATELET COUNT (AUTO) 159 K/uL (130-400); RED BLOOD CELL COUNT(AUTO) 5.07 MIL/uL (4.50-6.20); RED CELL DISTRIBUTION WIDTH 17.1 % (11.0-15.5); WHITE BLOOD COUNT (AUTO) 6.9 K/uL (4.8-10.8)
[2020-12-28 04:40] LABS: CREATININE 1.1 mg/dL (0.5-1.5); POTASSIUM 4.6 mmol/L (3.5-5.1)
[2020-12-28] MEDS: INSULIN HUMULIN R 100 UNIT/ML 3ML SQ SCH ×4 (07:30→21:46)
[2020-12-28] MEDS: **HM**Empagliflozin (Jardiance) 12.5 MG PO SCH (09:00)
[2020-12-28] MEDS: FUROSEMIDE 40 MG TABLET PO SCH (09:34)
[2020-12-28] MEDS: ROPINIROLE HCL 0.25 MG TABLET PO SCH ×2 (09:34→21:37)
[2020-12-28] MEDS: VANCOMYCIN 1G/250ML KIT 250 ML IV SCH (09:34)
[2020-12-28] MEDS: ASPIRIN 81 MG EC TAB PO SCH (09:34)
[2020-12-28] MEDS: MULTIVITAMIN WITH MINERALS TABLET PO SCH (09:34)
[2020-12-28] MEDS: APIXABAN 5 MG TABLET PO SCH ×2 (09:35→21:38)
[2020-12-28] MEDS: PRIMIDONE 50 MG TAB PO SCH ×2 (09:35→21:38)
[2020-12-28] MEDS: FAMOTIDINE 20MG TAB PO SCH (09:35)
[2020-12-28] MEDS: CARVEDILOL 12.5 MG TABLET PO SCH ×2 (09:35→21:38)
[2020-12-28] MEDS: CARBIDOPA PO SCH ×3 (09:41→21:39)
[2020-12-28] MEDS: [UNRECOGNIZED DRUG - OTHER] PO SCH ×3 (09:41→21:39)
[2020-12-28] MEDS: DOFETILIDE 250 MCG PO SCH ×2 (09:41→21:39)
[2020-12-28] MEDS: LEVODOPA PO SCH ×3 (09:41→21:39)
[2020-12-28] MEDS: VIT C PO SCH ×2 (09:42→21:39)
[2020-12-28] MEDS: ZINC PO SCH ×2 (09:42→21:39)
[2020-12-28] MEDS: COPPER PO SCH ×2 (09:42→21:39)
[2020-12-28] MEDS: VIT E PO SCH ×2 (09:42→21:39)
[2020-12-28] MEDS: VIT A PO SCH ×2 (09:42→21:39)
[2020-12-28] MEDS: LEVOBUNOLOL HCL OU SCH (09:44)
[2020-12-28] MEDS: ATORVASTATIN 40 MG TABLET PO SCH (21:38)
[2020-12-28] MEDS: LATANOPROST 2.5 ML DROPS OU SCH (21:39)
[2020-12-28] MEDS: INSULIN GLARGINE 100 UNITS/ML 10 ML VIAL SQ SCH (21:46)
[2020-12-29] MEDS ORDERED: CEFTRIAXONE 1G VIAL IVP SCH (09:00)
== END 2020-12-28 23:20 | DRG 602 ==
LOC: EDH 16:06 → EDHIP 21:15 → 3BH 12-24 00:58
PROVIDERS: ADMIT Internal Medicine; ATTEND Internal Medicine
DX: L03.115 Cellulitis of right lower limb (principal); I50.41 Acute combined systolic (congestive) and diastolic (congestive) heart failure; L97.919 Non-pressure chronic ulcer of unspecified part of right lower leg with unspecified severity; Q61.3 Polycystic kidney, unspecified; S80.821A Blister (nonthermal), right lower leg, initial encounter; E11.65 Type 2 diabetes mellitus with hyperglycemia; E11.51 Type 2 diabetes mellitus with diabetic peripheral angiopathy without gangrene; M19.90 Unspecified osteoarthritis, unspecified site; E78.00 Pure hypercholesterolemia, unspecified; I48.91 Unspecified atrial fibrillation; Z96.643 Presence of artificial hip joint, bilateral; G20 Parkinson's disease; I25.10 Atherosclerotic heart disease of native coronary artery without angina pectoris; E11.621 Type 2 diabetes mellitus with foot ulcer; B96.1 Klebsiella pneumoniae [K. pneumoniae] as the cause of diseases classified elsewhere; E66.9 Obesity, unspecified; E78.5 Hyperlipidemia, unspecified; Z68.21 Body mass index [BMI] 21.0-21.9, adult; Y93.89 Activity, other specified; Y92.89 Other specified places as the place of occurrence of the external cause; Y99.8 Other external cause status; Z79.899 Other long term (current) drug therapy; Z95.1 Presence of aortocoronary bypass graft; Z95.0 Presence of cardiac pacemaker; Z98.42 Cataract extraction status, left eye; Z98.41 Cataract extraction status, right eye; Z83.3 Family history of diabetes mellitus; Z82.49 Family history of ischemic heart disease and other diseases of the circulatory system; I11.0 Hypertensive heart disease with heart failure
CPT/HCPCS: 36415; 71045; 73610; 80048; 80053; 80202; 81001; 82948; 83036; 83605; 83735; 83880; 84100; 84145; 85025; 85651; 86140; 87040; 87070; 87076; 87077; 87186; 97039; G0378; J0690; J1815; J1940; J2543; J3370; J7050

== ENCOUNTER 2021-02-21 11:26 | Inpatient (IN) | payer OTHER ==
[~2021-02-21] VITALS: Ht 177.8 cm; Wt 90.4 kg
[~2021-02-21 11:26] MED LIST changes: +AEC81 PO; -CARV12.580 PO; +CARV6.25 PO; -CEPH500B PO; -CILO100T PO; +DETEMIR SQ; -DOXY100C5 PO; -EMPA10TA PO; +EMPA25TA PO; -GABA400C PO; +GABA600T10 PO; -INSU100V12 SQ; -LEVO55OS OD; +LEVO55OS OU; +MULT-1289 PO; -PRIM50TA23 PO; +PRIMIDONE PO; +ROSU20TA23 PO; -ROSU20TA31 PO; +VIT1CAPS5 PO; -XALA2.5OS OD; +XALA2.5OS OU
[2021-02-21 12:26] LABS: BASOPHILS % (AUTO) 0.9 % (0.0-5.0); EOSINOPHILS % (AUTO) 2.3 % (0.0-8.0); HEMATOCRIT 48.4 % (42-54); LYMPHOCYTES % (AUTO) 15.4 % (21.0-51.0); MEAN CORPUSCULAR HEMOGLOBIN 28.2 pg (27.0-33.0); MONOCYTES % (AUTO) 11.6 % (3.0-13.0); NEUTROPHILS % (AUTO) 69.4 % (40.0-77.0); PLATELET COUNT (AUTO) 138 K/uL (130-400); RED BLOOD CELL COUNT(AUTO) 5.32 MIL/uL (4.50-6.20); RED CELL DISTRIBUTION WIDTH 17.4 % (11.0-15.5); WHITE BLOOD COUNT (AUTO) 5.6 K/uL (4.8-10.8)
[2021-02-21 12:34] LABS: INR 1.17 (0.85-1.15); PROTHROMBIN TIME 12.6 SEC (9.6-11.6)
[2021-02-21 12:39] LABS: CARBON DIOXIDE 31 mmol/L (21-32); CHLORIDE 104 mmol/L (101-111); CREATININE 1.4 mg/dL (0.5-1.5); GLOMERULAR FILTR. RATE CALC 51 mL/min (>60); GLUCOSE,RANDOM 252 mg/dL (70-105); SODIUM SERUM 139 mmol/L (136-145); UREA NITROGEN, BLOOD 20 mg/dL (7-18)
[2021-02-21 12:43] LABS: ALANINE AMINOTRANSFERASE 62 U/L (12-78); ALBUMIN 3.3 g/dL (3.5-5.0); ASPARTATE AMINOTRANSFERASE 32 U/L (10-37); BILIRUBIN,TOTAL 0.8 mg/dL (0.2-1.0); TOTAL PROTEIN, SERUM 6.5 g/dL (6.0-8.3)
[2021-02-21 12:51] LABS: CRP QUANTITATIVE < 2.00 mg/L (0.00-9.0)
[2021-02-21 12:59] LABS: APPEARANCE,URINE Clear (CLEAR); BILIRUBIN,URINE Negative (NEGATIVE); COLOR,URINE Yellow (YELLOW); GLUCOSE, URINE (UA) Negative (NEGATIVE); KETONES,URINE Negative (NEGATIVE); LEUKOCYTE ESTERASE ,URINE Negative (NEGATIVE); NITRATE,URINE Negative (NEGATIVE); OCCULT BLOOD,URINE Negative (NEGATIVE); PH,URINE 5.5 (5.0-8.0); PROTEIN,URINE 300 mg/dL (NEGATIVE)
[2021-02-21 13:07] LABS: BACTERIA,URINE Rare /HPF (None Seen); RBC,URINE None Seen /HPF (0-1); WBC,URINE None Seen /HPF (0-1)
[2021-02-21] MEDS ORDERED: HYDRALAZINE 20MG/ML VIAL IV PRN (16:30)
[2021-02-21] MEDS ORDERED: ONDANSETRON 4MG INJ IV PRN (16:30)
[2021-02-21] MEDS ORDERED: ACETAMINOPHEN 325 MG TAB PO PRN ×2 (16:30)
[2021-02-21 17:48] LABS: HEMATOCRIT 45.9 % (42-54)
[2021-02-21] MEDS: INSULIN HUMULIN R 100 UNIT/ML 3ML SQ SCH (18:13)
[2021-02-21] MEDS: FUROSEMIDE 20MG VIAL IV SCH (20:05)
[2021-02-21] MEDS: CARVEDILOL 6.25 MG TABLET PO SCH (20:05)
[2021-02-21] MEDS: PANTOPRAZOLE 40 MG/VIAL IVP SCH (20:05)
[2021-02-21 21:45] VITALS: BP 139/81
[2021-02-21] MEDS ORDERED: INSU100V12 SQ (22:48)
[2021-02-22] VITALS: BP 128/81
[2021-02-22 01:03] LABS: HEMATOCRIT 45.9 % (42-54)
[2021-02-22 04:00] VITALS: BP 138/86
[2021-02-22 04:00] LABS: HEMATOCRIT 46.3 % (42-54); MEAN CORPUSCULAR HEMOGLOBIN 28.3 pg (27.0-33.0); MEAN CORPUSCULAR HGB CONC 31.5 g/dL (32.0-36.0); MEAN CORPUSCULAR VOLUME 89.9 fL (79-99); RED BLOOD CELL COUNT(AUTO) 5.15 MIL/uL (4.50-6.20); RED CELL DISTRIBUTION WIDTH 17.3 % (11.0-15.5); WHITE BLOOD COUNT (AUTO) 6.5 K/uL (4.8-10.8)
[2021-02-22 04:14] LABS: CREATININE 1.4 mg/dL (0.5-1.5); POTASSIUM 4.2 mmol/L (3.5-5.1)
[2021-02-22] MEDS: INSULIN HUMULIN R 100 UNIT/ML 3ML SQ SCH ×4 (05:36→18:00)
[2021-02-22] MEDS: FUROSEMIDE 20MG VIAL IV SCH ×2 (06:47→20:20)
[2021-02-22] MEDS: PANTOPRAZOLE 40 MG/VIAL IVP SCH ×2 (09:09→20:17)
[2021-02-22] MEDS: CARVEDILOL 6.25 MG TABLET PO SCH ×2 (09:10→20:17)
[2021-02-22 09:20] VITALS: BP 118/85
[2021-02-22 12:59] LABS: HEMATOCRIT 45.7 % (42-54)
[2021-02-22 13:05] VITALS: BP 131/74
[2021-02-22 16:28] VITALS: BP 143/92
[2021-02-22 20:08] VITALS: BP 148/84
[2021-02-23 00:08] VITALS: BP 146/87
[2021-02-23 04:08] VITALS: BP 135/88
[2021-02-23 05:00] LABS: HEMATOCRIT 51.4 % (42-54); MEAN CORPUSCULAR HEMOGLOBIN 28.1 pg (27.0-33.0); MEAN CORPUSCULAR HGB CONC 30.7 g/dL (32.0-36.0); MEAN CORPUSCULAR VOLUME 91.5 fL (79-99); RED BLOOD CELL COUNT(AUTO) 5.62 MIL/uL (4.50-6.20); RED CELL DISTRIBUTION WIDTH 17.9 % (11.0-15.5); WHITE BLOOD COUNT (AUTO) 7.4 K/uL (4.8-10.8)
[2021-02-23 05:18] LABS: CREATININE 1.3 mg/dL (0.5-1.5); POTASSIUM 4.4 mmol/L (3.5-5.1)
[2021-02-23] MEDS: INSULIN HUMULIN R 100 UNIT/ML 3ML SQ SCH ×5 (05:38→21:52)
[2021-02-23] MEDS: FUROSEMIDE 20MG VIAL IV SCH ×2 (06:32→21:26)
[2021-02-23 08:00] VITALS: BP 130/75
[2021-02-23] MEDS: PANTOPRAZOLE 40 MG/VIAL IVP SCH ×2 (09:53→21:23)
[2021-02-23] MEDS: CARVEDILOL 6.25 MG TABLET PO SCH (09:54)
[2021-02-23 12:00] VITALS: BP 135/78
[2021-02-23] MEDS: DOCUSATE SODIUM 100 MG CAP PO SCH ×3 (13:31→21:25)
[2021-02-23] MEDS: BISACODYL 5 MG TABLET.DR PO SCH ×3 (13:31→21:25)
[2021-02-23] MEDS: LEVODOPA PO SCH ×2 (14:00→21:36)
[2021-02-23] MEDS: CARBIDOPA PO SCH ×2 (14:00→21:36)
[2021-02-23] MEDS: [UNRECOGNIZED DRUG - OTHER] PO SCH ×2 (14:00→21:36)
[2021-02-23 16:00] VITALS: BP 127/87
[2021-02-23 17:19] LABS: ABG BASE EXCESS 2.8 mmol/L (-2.0-3.0); ABG HCO3 27.8 mmol/L (21.0-28.0); ABG OXYGEN SATURATION 98.4 % (95.0-99.0); ABG PCO2 44 mmHg (35-48)
[2021-02-23 20:04] VITALS: BP 132/88
[2021-02-23] MEDS: PRIMIDONE 50 MG TAB PO SCH (21:23)
[2021-02-23] MEDS: ATORVASTATIN 40 MG TABLET PO SCH (21:24)
[2021-02-23] MEDS: CARVEDILOL 12.5 MG TABLET PO SCH (21:24)
[2021-02-23] MEDS: ROPINIROLE HCL 1 MG TABLET PO SCH (21:24)
[2021-02-23] MEDS: LATANOPROST 2.5 ML DROPS OU SCH (21:25)
[2021-02-23] MEDS: VIT E PO SCH (21:36)
[2021-02-23] MEDS: VIT A PO SCH (21:36)
[2021-02-23] MEDS: COPPER PO SCH (21:36)
[2021-02-23] MEDS: ZINC PO SCH (21:36)
[2021-02-23] MEDS: VIT C PO SCH (21:36)
[2021-02-23] MEDS: INSULIN GLARGINE 100 UNITS/ML 10 ML VIAL SQ SCH (21:56)
[2021-02-24 00:08] VITALS: BP 114/77
[2021-02-24 03:49] LABS: HEMATOCRIT 45.1 % (42-54); MEAN CORPUSCULAR HGB CONC 31.3 g/dL (32.0-36.0); MEAN CORPUSCULAR VOLUME 89.7 fL (79-99); RED BLOOD CELL COUNT(AUTO) 5.03 MIL/uL (4.50-6.20); RED CELL DISTRIBUTION WIDTH 17.3 % (11.0-15.5)
[2021-02-24 03:55] LABS: CREATININE 1.4 mg/dL (0.5-1.5); POTASSIUM 3.6 mmol/L (3.5-5.1)
[2021-02-24 04:08] VITALS: BP 111/69
[2021-02-24] MEDS: INSULIN HUMULIN R 100 UNIT/ML 3ML SQ SCH ×4 (06:00→21:44)
[2021-02-24] MEDS: FUROSEMIDE 20MG VIAL IV SCH (07:30)
[2021-02-24 08:00] VITALS: BP 125/79
[2021-02-24] MEDS: CARVEDILOL 12.5 MG TABLET PO SCH (08:36)
[2021-02-24] MEDS: MULTIVITAMIN WITH MINERALS TABLET PO SCH (08:39)
[2021-02-24] MEDS: PANTOPRAZOLE 40 MG/VIAL IVP SCH (08:40)
[2021-02-24] MEDS: LEVOBUNOLOL HCL OU SCH (08:41)
[2021-02-24] MEDS: VIT E PO SCH ×2 (08:53→21:35)
[2021-02-24] MEDS: VIT A PO SCH ×2 (08:53→21:35)
[2021-02-24] MEDS: COPPER PO SCH ×2 (08:53→21:35)
[2021-02-24] MEDS: ZINC PO SCH ×2 (08:53→21:35)
[2021-02-24] MEDS: CARBIDOPA PO SCH ×3 (08:53→21:35)
[2021-02-24] MEDS: BISACODYL 5 MG TABLET.DR PO SCH ×2 (08:53→21:34)
[2021-02-24] MEDS: VIT C PO SCH ×2 (08:53→21:35)
[2021-02-24] MEDS: [UNRECOGNIZED DRUG - OTHER] PO SCH ×3 (08:53→21:35)
[2021-02-24] MEDS: DOCUSATE SODIUM 100 MG CAP PO SCH ×2 (08:53→21:34)
[2021-02-24] MEDS: LEVODOPA PO SCH ×3 (08:53→21:35)
[2021-02-24] MEDS ORDERED: FUROSEMIDE 40 MG TABLET PO SCH (09:00)
[2021-02-24] MEDS: ROPINIROLE HCL 1 MG TABLET PO SCH ×2 (09:00→21:40)
[2021-02-24] MEDS: PRIMIDONE 50 MG TAB PO SCH ×2 (09:00→21:41)
[2021-02-24 12:00] VITALS: BP 111/68
[2021-02-24 16:00] VITALS: BP 121/72
[2021-02-24] MEDS ORDERED: FUROSEMIDE 40MG VIAL IV ONE (16:00)
[2021-02-24 20:41] VITALS: BP 135/79
[2021-02-24] MEDS: LATANOPROST 2.5 ML DROPS OU SCH (21:34)
[2021-02-24] MEDS: CARVEDILOL 6.25 MG TABLET PO SCH (21:34)
[2021-02-24] MEDS: ATORVASTATIN 40 MG TABLET PO SCH (21:34)
[2021-02-24] MEDS: INSULIN GLARGINE 100 UNITS/ML 10 ML VIAL SQ SCH (21:43)
[2021-02-25 00:04] VITALS: BP 119/73
[2021-02-25 03:46] LABS: MEAN CORPUSCULAR HEMOGLOBIN 28.2 pg (27.0-33.0); MEAN CORPUSCULAR HGB CONC 30.9 g/dL (32.0-36.0); MEAN CORPUSCULAR VOLUME 91.3 fL (79-99); RED BLOOD CELL COUNT(AUTO) 4.93 MIL/uL (4.50-6.20); RED CELL DISTRIBUTION WIDTH 17.2 % (11.0-15.5); WHITE BLOOD COUNT (AUTO) 6.6 K/uL (4.8-10.8)
[2021-02-25 03:47] VITALS: BP 116/84
[2021-02-25 04:26] LABS: CREATININE 1.2 mg/dL (0.5-1.5); MAGNESIUM 1.6 mg/dL (1.80-2.40); PHOSPHORUS 4.4 mg/dL (2.5-4.9); POTASSIUM 3.6 mmol/L (3.5-5.1)
[2021-02-25] MEDS: INSULIN HUMULIN R 100 UNIT/ML 3ML SQ SCH ×3 (06:00→16:48)
[2021-02-25] MEDS ORDERED: BISA5TAB12 PO (07:19)
[2021-02-25] MEDS ORDERED: PANT40TA PO (07:19)
[2021-02-25] MEDS ORDERED: DOCU-270 PO (07:19)
[2021-02-25] MEDS ORDERED: CARV6.2579 PO (07:19)
[2021-02-25] MEDS ORDERED: LISI5TAB21 PO (07:19)
[2021-02-25] MEDS ORDERED: TORS20TA4 PO (07:19)
[2021-02-25 08:00] VITALS: BP 125/80
[2021-02-25] MEDS ORDERED: LISINOPRIL 5 MG TABLET PO SCH (09:00)
[2021-02-25] MEDS ORDERED: PANTOPRAZOLE 40 MG TAB DR PO SCH (09:00)
[2021-02-25] MEDS ORDERED: TORSEMIDE 20 MG TAB PO SCH (09:00)
[2021-02-25] MEDS: PRIMIDONE 50 MG TAB PO SCH (09:52)
[2021-02-25] MEDS: ROPINIROLE HCL 1 MG TABLET PO SCH (09:53)
[2021-02-25] MEDS: MULTIVITAMIN WITH MINERALS TABLET PO SCH (09:53)
[2021-02-25] MEDS: BISACODYL 5 MG TABLET.DR PO SCH (09:53)
[2021-02-25] MEDS: CARVEDILOL 6.25 MG TABLET PO SCH (09:53)
[2021-02-25] MEDS: DOCUSATE SODIUM 100 MG CAP PO SCH (09:53)
[2021-02-25] MEDS: [UNRECOGNIZED DRUG - OTHER] PO SCH ×2 (10:03→13:17)
[2021-02-25] MEDS: LEVODOPA PO SCH ×2 (10:03→13:17)
[2021-02-25] MEDS: CARBIDOPA PO SCH ×2 (10:03→13:17)
[2021-02-25] MEDS: VIT A PO SCH (10:04)
[2021-02-25] MEDS: VIT E PO SCH (10:04)
[2021-02-25] MEDS: VIT C PO SCH (10:04)
[2021-02-25] MEDS: COPPER PO SCH (10:04)
[2021-02-25] MEDS: ZINC PO SCH (10:04)
[2021-02-25] MEDS: LEVOBUNOLOL HCL OU SCH (10:04)
[2021-02-25] MEDS ORDERED: MAGNESIUM 2GM PREMIX 50ML 50 ML IV SCH (10:30)
[2021-02-25 12:37] VITALS: BP 126/67
[2021-02-25 16:24] VITALS: BP 127/76
== END 2021-02-25 18:49 | disposition home or self-care (01) | DRG 377 ==
LOC: EDH 11:26 → EDHIP 16:25 → 4CH 21:01
PROVIDERS: ADMIT Internal Medicine; ATTEND Internal Medicine
DX: K62.5 Hemorrhage of anus and rectum (principal); I50.43 Acute on chronic combined systolic (congestive) and diastolic (congestive) heart failure; J96.01 Acute respiratory failure with hypoxia; K65.0 Generalized (acute) peritonitis; J81.0 Acute pulmonary edema; L03.311 Cellulitis of abdominal wall; K86.2 Cyst of pancreas; K64.4 Residual hemorrhoidal skin tags; K59.00 Constipation, unspecified; I10 Essential (primary) hypertension; G20 Parkinson's disease; K57.30 Diverticulosis of large intestine without perforation or abscess without bleeding; I11.0 Hypertensive heart disease with heart failure; E78.5 Hyperlipidemia, unspecified; Z20.822 Contact with and (suspected) exposure to COVID-19; E11.9 Type 2 diabetes mellitus without complications; Z77.090 Contact with and (suspected) exposure to asbestos; E87.70 Fluid overload, unspecified; E78.00 Pure hypercholesterolemia, unspecified; I25.10 Atherosclerotic heart disease of native coronary artery without angina pectoris; I48.0 Paroxysmal atrial fibrillation; Z96.643 Presence of artificial hip joint, bilateral; Z79.84 Long term (current) use of oral hypoglycemic drugs; Z79.01 Long term (current) use of anticoagulants; Z95.0 Presence of cardiac pacemaker; Z95.1 Presence of aortocoronary bypass graft; Z82.49 Family history of ischemic heart disease and other diseases of the circulatory system; K80.20 Calculus of gallbladder without cholecystitis without obstruction
CPT/HCPCS: 36415; 36600; 71045; 74176; 80048; 80053; 81001; 82270; 82803; 82948; 83735; 83880; 84100; 84484; 85014; 85018; 85025; 85027; 85610; 85730; 86140; 86850; 86900; 86901; 87635; 93005; 93970; 94760; 97039; C9113; G0378; J1815; J1940